=== PATIENT | male | born 2005 | race Caucasian/White ===

== ENCOUNTER 2024-01-05 17:19 | Emergency (ER) | payer MEDICAID, SELFPAY ==
[2024-01-05 17:34] VITALS: BP 104/60; PULSE 103; RESP 15; TEMP 36.8; O2SAT 97
--- NOTE | 2024-01-05 17:34 | ED.GENADULT ---
HPI - General Adult General Chief complaint: Upper Respiratory Infection Stated complaint: cough, wheezing asthmatic Time Seen by Provider: 01/05/24 17:36 Source: patient, RN notes reviewed and old records reviewed Mode of arrival: ambulatory Limitations: no limitations History of Present Illness HPI narrative: 18-year-old male presents to the [facility] with cough and wheezing that started 4 days ago. Patient denies any other symptoms. Has been using his aunt's albuterol inhaler. No other treatment prior to arrival Onset (ago): day(s) (4) Related Data Allergies Allergy/AdvReac Type Severity Reaction Status Date / Time pseudoephedrine Allergy Intermediate Hives Verified 01/05/24 17:44 [From [facility]] Review of Systems Review of Systems: All systems reviewed & are unremarkable except as noted in HPI and below Constitutional: Constitutional: Reports no additional constitutional complaints Eyes: Eyes: Reports no additional eye complaints ENT: Reports system reviewed and no additional complaints, except as documented Cardiovascular: Cardiovascular: Reports no additional cardiovascular complaints, Denies chest pain and Denies dyspnea Respiratory: Respiratory: Reports as per HPI, Denies chest congestion, Reports cough and Reports dyspnea Gastrointestinal: Gastrointestinal: Reports no additional gastrointestinal complaints, Denies abdominal pain, Denies nausea and Denies vomiting Musculoskeletal: Musculoskeletal: Reports no additional musculoskeletal complaints Integumentary/Breasts: Skin/Breast: Reports system reviewed and no additional complaints, except as docu Neurologic: Reports system reviewed and no additional complaints, except as documented Psychiatric: Psychiatric: Reports no additional psychiatric complaints Allergic/Immunologic: Allergic/Immunologic: Reports no additional allergic/immunologic complaints PMFSH Comments At the time of my signature, I reviewed and agree with the nursing past medical, surgical, social, and family history. There is no relevant family history pertinent to the patient complaint. Exam Const: General: cooperative, healthy appearing, comfortable, no acute distress, well developed, alert and well nourished Nutritional Appearance: well nourished Orientation/consciousness: patient oriented x3 Limitations: no limitations HENMT: Head: normal to inspection Ears: hearing grossly normal bilaterally and external ears normal Face/Nose/Sinus: Normal external nose present, normal facial exam and face symmetric Face and sinus: normal facial exam and face symmetric Eyes: General: appearance normal, both eyes and all related structures Alignment and Position: alignment normal Periorbital: periorbital findings normal Neck: Neck: normal visual inspection, full ROM, no lymphadenopathy and no meningeal signs Chest: Chest palpation & inspection: normal inspection of the chest Resp: Effort & Inspection: normal respiratory effort and able to speak in complete sentences Auscultation: clear to auscultation bilaterally, no crackles, no rales, no rhonchi and no wheezes Cardio: Rate: regular rate Rhythm: regular rhythm Skin: General skin exam: normal color and no rashes or lesions noted Lesions: no lesions Rashes: no rashes Trauma: no lacerations or abrasions Wounds: no wounds Neuro: General: patient oriented x3, gait normal, tone normal, moves all extremities and no meningeal signs Cognition (Neuro): normal cognition Speech: normal speech Gait exam (Neuro): Normal gait present Extrem: General: normal to inspection, full ROM, capillary refill normal and normal gait Psych: Appearance: grossly normal and well kempt Mental Status: mental status grossly normal Speech and movement: Normal speech and movement present and Clear speech present Affect: normal affect Attitude: cooperative Course Course Level of Care: Express Care Visit Vital Signs Vital signs: Vital Signs Temperature 9
[2024-01-05 18:00] LABS: EDINFLUASCREEN Negative (Negative); EDINFLUBSCREEN Negative (Negative)
[2024-01-05 18:01] LABS: EDCOVIDSCREEN Negative (Negative); EDSTREPNEGPOS1 Negative (Negative)
== END 2024-01-05 18:12 | disposition home or self-care (01) ==
PROVIDERS: Emergency Provider Nurse Practitioner
DX: J40 Bronchitis, not specified as acute or chronic (principal); J45.909 Unspecified asthma, uncomplicated; Z20.822 Contact with and (suspected) exposure to COVID-19
CPT/HCPCS: 87081; 87426; 87804; 87880; 99203; G0463

== ENCOUNTER 2024-01-11 17:38 | Emergency (ER) | payer MEDICAID, SELFPAY ==
--- NOTE | ~2024-01-11 | XR_ITS ---
EXAMINATION: XR chest 2V DATE: 01/11/2024 18:47 INDICATION: Cough and shortness of breath. TECHNIQUE: Frontal and lateral views of the chest were obtained. COMPARISON: None. FINDINGS: There is no pneumonia, pleural effusion, or pneumothorax. The heart size is normal. IMPRESSION: 1. No acute cardiopulmonary disease. Reviewed, dictated and finalized at location A.
[2024-01-11 17:53] VITALS: BP 143/99; PULSE 112; RESP 16; TEMP 37.2; O2SAT 99
[2024-01-11 18:33] VITALS: PULSE 114; RESP 22
[2024-01-11] MEDS: IPRATROPIUM 0.5 MG/ALBUTEROL SULFATE 2.5 MG AMPUL.NEB 3 ML INHALATION (18:33)
--- NOTE | 2024-01-11 18:34 | ED.URI ---
HPI - URI/Sore Throat General Chief Complaint: Upper Respiratory Infection <Luis Brown APRN - Last Filed: 01/11/24 18:35> Stated Complaint: COUGH, HAS ASTHMA <Luis Brown APRN - Last Filed: 01/11/24 18:35> Time Seen by Provider: 01/11/24 18:53 <Luis Brown APRN - Last Filed: 01/11/24 18:35> 18-year-old male presents with cough, chest congestion, and wheezing for 1 week. Patient states he has a history of asthma. [facility] giving an albuterol inhaler and prednisone. Patient states he is almost out of his inhaler already. Patient denies fevers General appearance: Well-developed, well-nourished Skin: Normal color Head: Normocephalic, nontraumatic Eyes: Clear conjunctiva ENT: Oropharynx normal, ears normal, nose normal Neck: Supple, nontender Chest and respiratory: Airway patent, decreased breath sounds, no accessory muscle use Heart: Regular rate/rhythm Abdomen: Soft, nontender, no organomegaly, quiet bowel sounds Vascular: Normal peripheral pulses, normal capillary refill. Musculoskeletal: Normal range of motion, nontender back Neurologic: Alert and oriented ?3, RESIDENT BUYER is normal as tested, no gross motor deficit <Luis Brown APRN - Last Filed: 01/11/24 18:35> 18-year-old male presents with cough, chest congestion, and wheezing for 1 week. Patient states he has a history of asthma. Patient was [facility] in giving an albuterol inhaler and prednisone. Patient states he is almost out of his inhaler already. Patient denies fevers. General appearance: Well-developed, well-nourished Skin: Normal color Head: Normocephalic, nontraumatic Eyes: Clear conjunctiva ENT: Oropharynx normal, ears normal, nose normal Neck: Supple, nontender Chest and respiratory: Airway patent, decreased breath sounds, no accessory muscle use Heart: Regular rate/rhythm Abdomen: Soft, nontender, no organomegaly, quiet bowel sounds Vascular: Normal peripheral pulses, normal capillary refill. Musculoskeletal: Normal range of motion, nontender back Neurologic: Alert and oriented ?3, RESIDENT BUYER is normal as tested, no gross motor deficit <Ana Rosa L. Cheval, [employer] - Last Filed: 01/11/24 21:12> History of Present Illness HPI Narrative: I agree with the assessment and note by Luis Lozano NP. <Ana Rosa Mcgrath APRN - Last Filed: 01/11/24 21:12> Related Data Allergies/Adverse Reactions: Allergies Allergy/AdvReac Type Severity Reaction Status Date / Time pseudoephedrine Allergy Intermediate Hives Verified 01/05/24 17:44 [From [facility]] <Luis Brown, [employer] - Last Filed: 01/11/24 18:35> Review of Systems Review of Systems: All systems reviewed & are unremarkable except as noted in HPI and below <Ana Rosa Mcgrath APRN - Last Filed: 01/11/24 21:12> Exam Narrative: GENERAL: Well appearing, well-nourished, non-toxic, in no acute distress. HEAD: Normocephalic, atraumatic. Throat slightly red and swollen, but no purulent drainage noted. NECK: Supple. Mild palpable cervical lymph nodes. RESPIRATORY: Airway patent, respirations nonlabored. Clear to auscultation bilaterally, no rales, rhonchi, wheezing. Decreased bilateral lower lobes. CARDIOVASCULAR: Tachycardia, regular rhythm without murmurs, rubs, or gallops. Peripheral pulses 2+ and equal bilaterally. ABDOMINAL: Soft, nontender, nondistended, no hepatosp
[2024-01-11 18:39] VITALS: PULSE 107; RESP 22
[2024-01-11 19:50] VITALS: BP 111/66; PULSE 90; RESP 16; TEMP 36.9; O2SAT 97
[2024-01-11 20:49] LABS: Strep Group A RT-PCR NOT DETECTED (Negative)
[2024-01-11 21:02] LABS: Influenza A QL RT-PCR Negative (Negative); Influenza B QL RT-PCR Negative (Negative); RSV RNA, RT-PCR Negative (Negative); SARS-CoV-2 RNA PCR Negative (Negative)
--- NOTE | 2024-01-11 21:04 | PC.NURSE ---
pt declines getting breathing treatment because they state they feel better and would like to go home and follow up with PCP or return if symptoms get worse.
[2024-01-11 21:20] VITALS: BP 120/78; PULSE 78; RESP 16; O2SAT 97
== END 2024-01-11 21:22 | disposition home or self-care (01) ==
PROVIDERS: Emergency Provider Registered Nurse
DX: J45.901 Unspecified asthma with (acute) exacerbation (principal); Z20.822 Contact with and (suspected) exposure to COVID-19
CPT/HCPCS: 71046; 87637; 87651; 94640; 99283

== ENCOUNTER 2024-01-21 03:09 | Emergency (ER) | payer MEDICAID, SELFPAY ==
--- NOTE | ~2024-01-21 | XR_ITS ---
EXAMINATION: XR hand RT min 3V DATE: 01/21/2024 03:41 INDICATION: Right hand injury and pain. TECHNIQUE: 3 views of right hand were obtained. COMPARISON: None. FINDINGS: There is a transverse fracture of diaphysis of fourth metacarpal. The distal fracture fragm ent demonstrates 1 cortical width ulnar displacement, one half shaft width posterior displacement, an d 31 degrees palmar angulation. Joint spaces are normal. IMPRESSION: 1. Transverse fracture of diaphysis of fourth metacarpal. Reviewed, dictated and finalized at location A.
[2024-01-21 03:13] VITALS: BP 124/72; PULSE 102; RESP 15; TEMP 36.6; O2SAT 98
[2024-01-21 03:44] VITALS: BP 123/83; PULSE 78; RESP 18; TEMP 36.8; O2SAT 99
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
--- NOTE | 2024-01-21 04:09 | PC.NURSE ---
patient right hand wrapped with an ulnar gutter splint. patient tolerated this task.
[2024-01-21 04:23] VITALS: BP 128/74; PULSE 72; RESP 18; O2SAT 98
== END 2024-01-21 04:26 | disposition home or self-care (01) ==
PROVIDERS: Emergency Provider Emergency Medicine
DX: S62.324A Displaced fracture of shaft of fourth metacarpal bone, right hand, initial encounter for closed fracture (principal); X58.XXXA Exposure to other specified factors, initial encounter
CPT/HCPCS: 29125; 73130; 99284